=== PATIENT | female | born 1950 | race Caucasian/White ===

== ENCOUNTER 2017-10-27 19:25 | Emergency (ER) | payer MEDICARE, BC ==
[2017-10-27] MEDS ORDERED: Bacitracin Oint 1 GM U/D Packet TOP ONE (20:35)
[2017-10-27] MEDS ORDERED: Diphtheria,Pertussis(Acell),Tetanus Vaccine 0.5 ML SDV IM ONE (20:36)
--- NOTE | 2017-10-27 20:40 | EDM.PDOC ---
ED HPI GENERAL MEDICAL PROBLEM - General Chief Complaint: Laceration Stated Complaint: HIT HEAD Time Seen by Provider: 10/27/17 20:13 Source of Information: Reports: Patient History Limitations: Reports: No Limitations - History of Present Illness INITIAL COMMENTS - FREE TEXT/NARRATIVE: This lady was playing pickle ball, similar to [place], distant short while before arrival and she hit herself just beneath the lateral margin of the left eyebrow. There is no conscious loss of consciousness. Bleeding is controlled. 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: Oncologic (Cancer) History: Reports: Basal Cell Carcinoma - Infectious Disease History Infectious Disease History: Reports: Chicken Pox - Past Surgical History HEENT Surgical History: Reports: Other (See Below) Other HEENT Surgeries/Procedures: removal of basal cell carcinoma on right side of nose Female Surgical History: Reports: Hysterectomy Musculoskeletal Surgical History: Reports: Other (See Below) Other Musculoskeletal Surgeries/Procedures:: ruptured tendon right wrist Social & Family History - Tobacco Use Smoking Status *Q: Never Smoker - Caffeine Use Caffeine Use: Reports: Coffee - Recreational Drug Use Recreational Drug Use: No ED ROS GENERAL - Review of Systems Review Of Systems: ROS reveals no pertinent complaints other than HPI. ED EXAM, SKIN/RASH Exam: See Below Exam Limited By: No Limitations General Appearance: Alert, WD/WN Eye Exam: Bilateral Eye: Normal Inspection Head: Other (There is a small laceration approximately 1.5 cm long its transverse just inferior to the lateral margin of the left eyebrow. The edges are well approximated and I am able to force the laceration open only about 1 or 2 mm and it's only about 2 mm deep so really doesn't need suturing. It's a clean wound.) Course - Vital Signs Last Recorded V/S: Last Vital Signs Temp 36.3 C 10/27/17 20:15 Pulse 71 10/27/17 20:15 Resp 17 10/27/17 20:15 BP 159/72 H 10/27/17 20:15 Pulse Ox 93 L 10/27/17 20:15 - Re-Assessments/Exams Free Text/Narrative Re-Assessment/Exam: 10/27/17 20:38 The wound was lavaged with saline some bacitracin was applied followed by a Band -Aid. She also received an Adacel injection. Departure - Departure Time of Disposition: 20:38 Disposition: Home, Self-Care 01 Condition: Fair Clinical Impression: Laceration of left eyebrow - Discharge Information Referrals: PCP,None [Primary Care Provider] - Additional Instructions: Just wash the wound gently with soap and water daily. Apply a small dab of antibiotic ointment which is optional followed by a Band-Aid. This should heal quickly within about 4 or 5 days. You're tetanus shot is good for 10 years.
== END 2017-10-27 20:59 | disposition home or self-care (01) ==
LOC: JP.ED 19:25
DX: S01.112A Laceration without foreign body of left eyelid and periocular area, initial encounter (principal); W22.8XXA Striking against or struck by other objects, initial encounter
CPT/HCPCS: 90471; 90715; 99283; 99283-25

== ENCOUNTER 2021-01-28 14:20 | Emergency (ER) | payer MEDICARE, BC ==
--- NOTE | 2021-01-28 16:29 | EDM.PDOC ---
ED HPI GENERAL MEDICAL PROBLEM - General Chief Complaint: Upper Extremity Injury/Pain Stated Complaint: RT THUMB PAIN Time Seen by Provider: 01/28/21 16:20 Source of Information: Reports: Patient, Old Records, RN History Limitations: Reports: No Limitations - History of Present Illness INITIAL COMMENTS - FREE TEXT/NARRATIVE: 70 yo female is here after she fell in her yard and injured her R thumb. Has had 2 surgeries on that thumb in the past. [place] a snap when she fell. Had work gloves on at the time. 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: Other (see below) (none) Right Hand Pain Score (Numeric/FACES): 3 - Related Data Allergies Allergy/AdvReac Type Severity Reaction Status Date / Time No Known Allergies Allergy Verified 01/28/21 16:07 Home Meds: Home Meds Calcium Carbonate/Vitamin D3 [Calcium 500-Vit D3 125 Caplet] 1 tab PO DAILY 12/03/20 [History] Cholecalciferol (Vitamin D3) [Vitamin D] 1,000 unit PO DAILY 12/03/20 [History] Lactobacillus Acidophilus [Probiotic] 1 tab PO DAILY 12/03/20 [History] [place]-3 Fatty Acids [Maxepa] 500 mg PO DAILY 12/03/20 [History] Vitamin B Complex 1 tab PO DAILY 12/03/20 [History] Vitamin E Acid Succinate [Vitamin E] 100 unit PO DAILY 12/03/20 [History] Zinc 50 mg PO DAILY 01/28/21 [History] Past Medical History HEENT History: Reports: 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: Musculoskeletal History: Reports: Other (See Below) Other Musculoskeletal History: right shoulder pain Oncologic (Cancer) History: Reports: Basal Cell Carcinoma - Infectious Disease History Infectious Disease History: Reports: Chicken Pox - Past Surgical History HEENT Surgical History: Reports: Other (See Below) Other HEENT Surgeries/Procedures: removal of basal cell carcinoma on right side of nose Female Surgical History: Reports: Hysterectomy Musculoskeletal Surgical History: Reports: Other (See Below) Other Musculoskeletal Surgeries/Procedures:: ruptured tendon right wrist Social & Family History - Tobacco Use Tobacco Use Status *Q: Never Tobacco User - Caffeine Use Caffeine Use: Reports: Coffee - Alcohol Use Days Per Week of Alcohol Use: 7 Number of Drinks Per Day: 1 Total Drinks Per Week: 7 - Recreational Drug Use Recreational Drug Use: No Review of Systems - Review of Systems Review Of Systems: See Below Constitutional: Reports: No Symptoms Musculoskeletal: Reports: Joint Pain (DIP joint of R thumb) Skin: Reports: No Symptoms Neurological: Reports: No Symptoms ED EXAM, GENERAL - Physical Exam Exam: See Below Exam Limited By: No Limitations General Appearance: Alert, WD/WN, No Apparent Distress Extremities: Normal Inspection, No Pedal Edema, Limited Range of Motion, Redness (not sure if this is new or not. ). No: Normal Range of Motion, Non-Tender, Pedal Edema, Increased Warmth Neurological: Alert, Oriented, CN II-XII Intact, Normal Cognition, No Motor/Sensory Deficits Psychiatric: Normal Affect, Normal Mood Skin Exam: Warm, Dry, Intact, Normal Color, No Rash Course - Vital Signs Last Recorded V/S: Last Vital Signs Temp 36.5 C 01/28/21 16:17 Pulse 62 01/28/21 16:17 Resp 16 01/28/21 16:17 BP 140/57 L 01/28/21 16:17 Pulse Ox 100 01/28/21 16:17 - Orders/Labs/Meds Orders: Active Orders 24 hr Category Date Time Status Fingers Thumb Rt F5 [CR] Stat Exams 01/28/21 16:21 Ordered - Radiology Interpretation Free Text/Narrative:: R thumb [id number] fx distal phalanx dorsally Departure - Departure Time of Disposition: 17:10 Disposition: Home, Self-Care 01 Condition: Fair Clinical Impression: Avulsion fracture of thumb Qualifiers: Encounter type: initial encounter Fracture type: closed Laterality: right Q ualified Code(s): S62.501A - Fracture of unspecified phalanx of right thumb, initial encounter for closed fracture - Discharge Information *PRESCRIPTION DRUG MONITORING PROGRAM REVIEWED*: No *COPY OF PRESCRIPTION DRUG MONITORING REPORT IN PATIENT ABDIAZIZ: No Instructions: Finger Fracture, Adult, [id number] Referrals: Cassidy Rush PA-C [Primary Care Provider] - Forms: ED Department Discharge Additional Instructions: Wear splint at all times. F/U with Dr. Prochaska mary. Acetaminophen as needed. Elevate. Sepsis Event Note (ED) - Evaluation Sepsis Screening Result: No Definite Risk - Focused Exam Vital Signs: Vital Signs Temp Pulse Resp BP Pulse Ox 01/28/21 16:17 36.5 C 62 16 140/57 L 100 01/28/21 15:38 36.5 C 62 16 140/57 L 100 - My Orders Last 24 Hours: My Active Orders 01/28/21 16:21 Fingers Thumb Rt F5 [CR] Stat - Assessment/Plan Last 24 Hours: My Active Orders 01/28/21 16:21 Fingers Thumb Rt F5 [CR] Stat
--- NOTE | 2021-01-29 08:40 | CR ---
Fingers Thumb Rt F5 CLINICAL HISTORY: Injury FINDINGS: There is a fracture off the dorsal base of the first distal phalanx. There is articular surface involvement. IMPRESSION: Displaced fracture through the base of the first distal phalanx
== END 2021-01-28 17:38 | disposition home or self-care (01) ==
LOC: JP.ED 14:20
DX: S62.511A Displaced fracture of proximal phalanx of right thumb, initial encounter for closed fracture (principal); W19.XXXA Unspecified fall, initial encounter
CPT/HCPCS: 73140-26-F5; 73140-F5; 99283